=== PATIENT | male | born 1950 | race Caucasian/White ===

== ENCOUNTER 2023-02-06 10:51 | Day surgery (SDC) | payer MEDICARE, BC ==
[~2023-02-06] VITALS: Ht 185.4 cm; Wt 91.6 kg
[2023-02-06] VITALS (7 sets, daily range): BP systolic 137–190; BP diastolic 51–111
[~2023-02-06 10:51] MED LIST: AMLO10 PO; ATOR40TA PO; Aspir 8181 MG PO; B COMPLEX FORM0.4 MG; CILO100 PO; CLOP75 PO; HYDHCL25 PO; HYDR10 PO; IPRATROPIUM BRO15 ML; JARDIANCE25 MG PO; LOSA50 PO; METF500 PO; METO100 PO; NIAC500 PO; OMEGA-3 + VITA200 ML PO; PRIM250 PO; TRAZ50 PO; VITAMIN D31000 UNI1 PO; ZOLOFT100 M2 PO
== END 2023-02-06 17:15 | disposition home or self-care (01) ==
LOC: MHTC 10:51
DX: E11.51 Type 2 diabetes mellitus with diabetic peripheral angiopathy without gangrene (principal); I70.221 Atherosclerosis of native arteries of extremities with rest pain, right leg; I10 Essential (primary) hypertension; E78.5 Hyperlipidemia, unspecified; G47.33 Obstructive sleep apnea (adult) (pediatric); Z87.891 Personal history of nicotine dependence; Z79.82 Long term (current) use of aspirin; Z79.899 Other long term (current) drug therapy
CPT/HCPCS: 76937; 82947; 99152; 99153; C1725; C1760; C1769; C1876; C1887; C1894; J1644; J2250; J3010; J7030; J7050; Q9967